=== PATIENT | male | born 1970 | race Caucasian/White ===

== ENCOUNTER → 2021-01-22 | Outpatient (CLI) | payer OTHER ==
[~2021-01-22] MED LIST: FISH OIL 1,0001 EAC9 PO; NORCO5 PO; PRILOSEC OTC20 MG PO; VITAMIN C500 M1 PO; VITAMIN D-40010 MCG PO
== END ==
LOC: M.LAB 15:28
PROVIDERS: ATTEND Surgery
DX: Z01.812 Encounter for preprocedural laboratory examination (principal); Z20.822 Contact with and (suspected) exposure to COVID-19

== ENCOUNTER → 2021-01-25 | Day surgery (SDC) | payer OTHER ==
--- NOTE | 2021-01-30 09:29 | OP ---
[facility] [address] [place] [address] OPERATIVE REPORT Name: ALEXANDRU SPENCER Room: [facility].#: [id number] Admission: 01/25/21 Attend Phys: Duong Gloria Discharge: Date of : 68 Report #: [id number] THIS REPORT FOR: cc: Cathy,Srikanth Chun,Srikanth CIFUENTES ~ Duong Gloria MD DATE OF SERVICE: 01/25/2021 PREOPERATIVE DIAGNOSIS: Perineal mass, 1 cm. POSTOPERATIVE DIAGNOSIS: Perineal mass, 1 cm. OPERATION: Excision of perineal mass, 1 cm, benign. SURGEON: Duong Gloria MD ANESTHESIA: General. ESTIMATED BLOOD LOSS: Minimal. SPECIMEN: Perineal mass. DESCRIPTION OF PROCEDURE: After informed consent was obtained, the patient was brought to the operating room and placed supine. SCDs were placed and working, preoperative antibiotics were administered, general anesthesia was induced. The patient was placed in the lithotomy position. The area was then prepped and draped in the usual sterile fashion. He had a small opening in the perineum near the base of the scrotum. This was grasped and a 1-cm elliptical incision was made to cut out the skin. Cautery dissection was made down to the subcutaneous fat. The mass was excised. The wound was partially closed with 2 interrupted 4-0 Monocryl sutures. The other part was left open. It was packed with sterile gauze. Sterile dressings were applied. COMPLICATIONS: None. DISPOSITION: The patient was taken to recovery in satisfactory condition. <ELECTRONICALLY SIGNED> By: Duong Gloria MD 01/30/21 0929 1914 Duong Gloria MD /nt
--- NOTE | 2021-01-30 10:08 | PATH ---
[facility] [address] [place] [address] PATHOLOGY RPT PROCEDURE Name: ALEXANDRU SPENCER Room: [facility].#: [id number] Admission: 01/25/21 Date of : 68 Discharge: Report #: [id number] Path Case #: [id number] [facility] Accession Number: [id number] . 01 Material submitted: . perineum - PERINEAL MASS . 01 Clinical history: . GROIN MASS EXCISION MASS . 02 Diagnosis: Perineal mass: - Benign skin with epithelial inclusion cyst showing mild chronic inflammation and fibrosis. (OSMANI:jessie; 01/29/2021) MBR 01/29/2021 1706 Local . 02 Electronically signed: . Rod Moreno MD, Pathologist NPI- [id number] . 01 Gross description: . The specimen is received in formalin, labeled "Rodolfo Spencer, perineal mass". Received are three segments of yellow-crews tissue, one of which has attached rasheed-brown skin, measuring 2.4 x 1.8 x 1.0 cm in greatest mentions. The surgical margin of the segment with attached skin is inked black. Sectioning reveals pale crews to yellow-crews cut surfaces. The specimen is submitted entirely in cassette A1. (CAA; 01/28/2021) QAC/QA 01/28/2021 1132 Local . 02 Pathologist provided ICD-10: L72.0 . 02 CPT . 510006 Specimen Comment: A courtesy copy of this report has been sent to [phone] Specimen Comment: Report sent to Performed at: 01 [facility] [address], [place], [place] [id number] MD Last Bowman MD Phone: [phone] Performed at: [address] [facility] [address] [place], [place] [id number] MD Rod Moreno MD Phone: [phone]
== END | disposition home or self-care (01) ==
LOC: M.SUR
PROVIDERS: ATTEND Surgery
DX: L72.0 Epidermal cyst (principal); R10.2 Pelvic and perineal pain; K21.9 Gastro-esophageal reflux disease without esophagitis; F41.9 Anxiety disorder, unspecified; Z98.890 Other specified postprocedural states; Z96.651 Presence of right artificial knee joint; Z79.899 Other long term (current) drug therapy